=== PATIENT | female | born 1960 | race Two or more races ===

== ENCOUNTER → 2024-06-24 | Outpatient (CLI) | payer MEDICAID, SELFPAY ==
--- NOTE | 2024-06-24 08:00 | XR_ITS ---
Examination: Breast ultrasound complete, bilateral Date and time of exam: June 24, 2024 0823 hours INDICATIONS: Right breast sonography February 27, 2023 9:00 nodule 8 x 7 mm with breast biopsy marker, personal history right breast cancer with lumpectomy 2007, family history, mother, breast cancer Technique: Real-time grayscale ultrasonographic imaging bilateral breasts, including all 4 quadrants as well as nipple retroareolar and axillary regions. Findings: 9:00 nodule lobular margins 6 x 4 mm IMPRESSION: BI-RADS Category 2: Benign findings
--- NOTE | 2024-06-24 09:00 | XR_ITS ---
Examination: Diagnostic digital mammography, bilateral Computer aided detection 3-D breast Tomosynthesis, bilateral Date and time of exam: June 24, 2024 at 0838 hours Compared to mammograms dating to July 10, 2015 INDICATIONS: Personal history right breast cancer 2008 with lumpectomy, family history mother breast cancer Technique: Nonmagnified MLO, CC views of the breasts to been obtained, reconstructed from 3-D Tomosynthesis images. R2 computer aided detection program utilized for evaluation of suspicious masses and/or abnormal calcifications. 3-D Tomosynthesis images obtained. Findings: Scattered areas of fibroglandular density. Architectural distortion stable in the upper outer right breast Benign calcifications No interval suspicious masses Impression: BI-RADS Category 2: Benign findings Recommend yearly follow-up mammography.
== END | disposition home or self-care (01) ==
PROVIDERS: PCP Family Medicine; Referring Provider Advanced Practice Midwife; Visit Provider Advanced Practice Midwife
DX: R92.8 Other abnormal and inconclusive findings on diagnostic imaging of breast (principal); R92.323 Mammographic fibroglandular density, bilateral breasts
CPT/HCPCS: 76641; 77062; 77066; G0279